=== PATIENT | male | born 1975 | race Caucasian/White ===

== ENCOUNTER 2018-03-26 13:20 | Outpatient (CLI) | payer OTHER ==
[~2018-03-26 13:20] MED LIST: CLIN300C11 PO; OXYC-133 PO; VENL75CA56 PO
== END 2018-03-26 23:59 | disposition home or self-care (01) ==
LOC: WOU 13:20
PROVIDERS: ATTEND Surgery
DX: L03.011 Cellulitis of right finger (principal); L02.511 Cutaneous abscess of right hand; J45.909 Unspecified asthma, uncomplicated
CPT/HCPCS: 11043; A6402; Z7610

== ENCOUNTER 2018-04-02 14:00 | Outpatient (CLI) | payer OTHER | END 2018-04-02 23:59 | disposition home or self-care (01) | LOC: WOU 14:00 | PROVIDERS: ATTEND Surgery | DX: T81.89XA Other complications of procedures, not elsewhere classified, initial encounter (principal); L03.011 Cellulitis of right finger | CPT/HCPCS: 11043; A6402; Z7610 ==

== ENCOUNTER 2018-04-09 14:00 | Outpatient (CLI) | payer OTHER | END 2018-04-09 23:59 | disposition home health service (06) | LOC: WOU 14:00 | PROVIDERS: ATTEND Surgery | DX: Z48.817 Encounter for surgical aftercare following surgery on the skin and subcutaneous tissue (principal); S61.210D Laceration without foreign body of right index finger without damage to nail, subsequent encounter; L03.011 Cellulitis of right finger; X58.XXXD Exposure to other specified factors, subsequent encounter; J45.909 Unspecified asthma, uncomplicated | CPT/HCPCS: 11042; A6402; Z7610 ==

== ENCOUNTER 2018-04-16 13:51 | Outpatient (CLI) | payer OTHER | END 2018-04-16 23:59 | disposition home or self-care (01) | LOC: WOU 13:51 | PROVIDERS: ATTEND Surgery | DX: S61.210A Laceration without foreign body of right index finger without damage to nail, initial encounter (principal); L03.011 Cellulitis of right finger; X58.XXXA Exposure to other specified factors, initial encounter; Y92.89 Other specified places as the place of occurrence of the external cause; J45.909 Unspecified asthma, uncomplicated | CPT/HCPCS: 99213; Z7610; G0463 ==